=== PATIENT | female | born 1945 | race Caucasian/White ===

== ENCOUNTER 2016-07-25 18:02 | Inpatient (IN) | payer OTHER, MEDICARE ==
[~2016-07-25] VITALS: Ht 177.8 cm; Wt 89.0 kg
[2016-07-25 18:14] VITALS: BP 158/100; PULSE 113; RESP 22; TEMP 98.2; O2SAT 97
[2016-07-25] MEDS ORDERED: [UNRECOGNIZED DRUG - REMARK] PO (18:19)
[2016-07-25] MEDS ORDERED: SODIUM CHLOR 0.9% 1000 ML INJ 1,000 ML IV SCH (18:23)
[2016-07-25] MEDS ORDERED: SODIUM CHLORIDE 0.9% FLUSH 10 ML FLUSH IVF PRN ×2 (18:30→20:30)
[2016-07-25] MEDS ORDERED: ONDANSETRON HCL 4 MG/2 ML VIAL IVP ONE (18:30)
[2016-07-25] MEDS ORDERED: MORPHINE SULFATE 4 MG/ML INJ IV PUSH ONE (18:30)
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
[2016-07-25 18:50] LABS: AUTOMATED NEUTROPHIL # 8.6 TH/MM3 (1.8-7.7); BASOPHIL # 0.1 TH/MM3 (0-0.2); BASOPHIL % 0.9 % (0.0-2.0); EOSINOPHIL # 0.1 TH/MM3 (0-0.4); EOSINOPHIL % 0.5 % (0.0-4.0); HEMATOCRIT 43.2 % (35.0-46.0); HEMO FLAGS DIFF FINAL; LYMPH % 20.4 % (9.0-44.0); LYMPHOCYTE # 2.4 TH/MM3 (1.0-4.8); MEAN CELL VOLUME 92.3 FL (80.0-100.0); MEAN CORPUSCULAR HEMOGLOBIN 30.5 PG (27.0-34.0); MONO % 4.7 % (0.0-8.0); NEUT % 73.5 % (16.0-70.0); PLATELET COUNT 223 TH/MM3 (150-450); RED BLOOD COUNT 4.68 MIL/MM3 (4.00-5.30); RED CELL DISTRIBUTION WIDTH 12.6 % (11.6-17.2); WHITE BLOOD COUNT 11.7 TH/MM3 (4.0-11.0)
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
[2016-07-25 19:01] LABS: APTT (PATIENT) 22.4 SEC (24.3-30.1); INTERNATIONAL NORMALIZED RATIO 0.9 RATIO; PROTHROMBIN TIME - PATIENT 10.2 SEC (9.8-11.6)
[2016-07-25 19:13] LABS: ANION GAP 7 MEQ/L (5-15); BICARBONATE 24.8 MEQ/L (21.0-32.0); BLOOD UREA NITROGEN 14 MG/DL (7-18); CHLORIDE 104 MEQ/L (98-107); GLOMERULAR FILTRATION RATE 53 ML/MIN (>89); SODIUM (NA) 136 MEQ/L (136-145)
[2016-07-25 19:17] LABS: CREATINE KINASE 129 U/L (26-192)
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
[2016-07-25 19:30] LABS: CKMB 3.6 NG/ML (0.5-3.6)
[2016-07-25] MEDS ORDERED: IOHEXOL 350 MG/ML 10 ML VIAL (for RAD DIAG) IV ONE (20:00)
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
[2016-07-25] MEDS ORDERED: ONDANSETRON HCL 4 MG/2 ML VIAL IV PRN (20:30)
[2016-07-25] MEDS ORDERED: NALOXONE HCL 0.4 MG/ML AMP IV PRN (20:30)
[2016-07-25] MEDS ORDERED: oxyCODONE/ACETAMINOPHEN 5 MG/325 MG TAB PO PRN (20:30)
[2016-07-25] MEDS ORDERED: MORPHINE SULFATE 4 MG/ML INJ IV PRN (20:30)
[2016-07-25] MEDS ORDERED: Post-op Orders (for Pharmacy) MISC XX ONE (20:30)
[2016-07-25] MEDS ORDERED: SODIUM CHLORIDE 0.9% FLUSH 10 ML FLUSH IV FLUSH PRN (20:30)
[2016-07-25 20:50] VITALS: O2SAT 98
[2016-07-25] MEDS: SODIUM CHLORIDE 0.9% FLUSH 10 ML FLUSH IV FLUSH SCH (21:00)
[2016-07-25] MEDS ORDERED: DOCUSATE SODIUM 100 MG CAP PO SCH (21:00)
[2016-07-25] MEDS ORDERED: SODIUM CHLORIDE 0.9% FLUSH 10 ML FLUSH IV FLUSH SCH (21:00)
[2016-07-25] MEDS: KETOROLAC TROMETHAMINE 30 MG/ML (IVP) VIAL IV PUSH SCH (22:05)
[2016-07-25] MEDS: SODIUM CHLOR 0.9% 1000 ML INJ 1,000 ML IV SCH (22:05)
[2016-07-25] MEDS: LIDOCAINE HCL 5% PATCH T-DERMAL SCH (22:06)
[2016-07-25] MEDS: PANTOPRAZOLE SOD 40 MG DELAYED RELEASE TAB PO SCH (22:06)
[2016-07-25 22:27] VITALS: RESP 16; O2SAT 95
[2016-07-25] MEDS: ENOXAPARIN SODIUM 40 MG/0.4 ML SYRINGE SQ SCH (22:46)
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
[2016-07-26] VITALS (9 sets, daily range): BP systolic 119–157; BP diastolic 55–80; PULSE 58–78; RESP 18–20; TEMP 96.8–98; O2SAT 90–100
[2016-07-26] MEDS: KETOROLAC TROMETHAMINE 30 MG/ML (IVP) VIAL IV PUSH SCH ×4 (03:00→21:00)
[2016-07-26] MEDS: SODIUM CHLOR 0.9% 1000 ML INJ 1,000 ML IV SCH ×2 (06:13→17:08)
[2016-07-26 08:42] LABS: BASOPHIL % 0.4 % (0.0-2.0); EOSINOPHIL % 0.4 % (0.0-4.0); HEMATOCRIT 37.3 % (35.0-46.0); HEMO FLAGS DIFF FINAL; LYMPH % 32.7 % (9.0-44.0); LYMPHOCYTE # 2.2 TH/MM3 (1.0-4.8); MEAN CELL VOLUME 91.8 FL (80.0-100.0); MEAN CORPUSCULAR HEMOGLOBIN 30.8 PG (27.0-34.0); MEAN CORPUSCULAR HGB CONC 33.5 % (32.0-36.0); MONO % 7.5 % (0.0-8.0); PLATELET COUNT 204 TH/MM3 (150-450); RED BLOOD COUNT 4.06 MIL/MM3 (4.00-5.30); RED CELL DISTRIBUTION WIDTH 12.7 % (11.6-17.2); WHITE BLOOD COUNT 6.8 TH/MM3 (4.0-11.0)
[2016-07-26] MEDS ORDERED: REMOVE OLD LIDOCAINE PATCH T-DERMAL SCH (09:00)
[2016-07-26 09:24] LABS: BICARBONATE 27.9 MEQ/L (21.0-32.0)
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
[2016-07-26] MEDS: METHOCARBAMOL 500 MG TAB PO SCH ×3 (10:27→22:00)
[2016-07-26] MEDS: ACETAMINOPHEN 1000 MG/100 ML VIAL IV SCH ×3 (10:27→20:00)
[2016-07-26] MEDS: POLYETHYLENE GLYCOL 17 GM PKG PO SCH (10:29)
[2016-07-26] MEDS: SODIUM CHLORIDE 0.9% FLUSH 10 ML FLUSH IV FLUSH SCH ×2 (10:30→21:00)
[2016-07-26] MEDS: DOCUSATE SODIUM 50 MG/SENNA 8.6 MG TAB PO SCH ×2 (10:30→21:00)
--- NOTE | 2016-07-26 12:08 | EKG ---
Date Performed: 07/25/2016 Time Performed: 18:18:33 PTAGE: 71 years EKG: SINUS TACHYCARDIA POSSIBLE LEFT ATRIAL ENLARGEMENT NONSPECIFIC ST & T-WAVE ABNORMALITY ABNO RMAL RHYTHM ECG NO PREVIOUS TRACING DOCTOR: Hi Stephens Interpretating Date/Time 07/26/2016 12:07:50
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
[2016-07-26] MEDS ORDERED: WALKER WHEELS/F1 MIS (18:31)
[2016-07-26] MEDS: LIDOCAINE HCL 5% PATCH T-DERMAL SCH (21:00)
[2016-07-26] MEDS ORDERED: MELATONIN 5 MG TAB PO SCH (21:00)
[2016-07-26] MEDS: ENOXAPARIN SODIUM 40 MG/0.4 ML SYRINGE SQ SCH (22:00)
[2016-07-26] MEDS: PANTOPRAZOLE SOD 40 MG DELAYED RELEASE TAB PO SCH (22:00)
[2016-07-27 01:00] VITALS: BP 159/72; PULSE 92; RESP 16; TEMP 97.7; O2SAT 97
[2016-07-27] MEDS: ACETAMINOPHEN 1000 MG/100 ML VIAL IV SCH (02:00)
[2016-07-27] MEDS: KETOROLAC TROMETHAMINE 30 MG/ML (IVP) VIAL IV PUSH SCH ×2 (02:46→10:32)
[2016-07-27] MEDS: SODIUM CHLOR 0.9% 1000 ML INJ 1,000 ML IV SCH (02:57)
[2016-07-27 04:00] VITALS: BP 140/66; PULSE 79; RESP 18; TEMP 98.4; O2SAT 98
[2016-07-27] MEDS: METHOCARBAMOL 500 MG TAB PO SCH ×2 (05:07→13:07)
[2016-07-27 08:00] VITALS: BP_SYST 171; BP_SYST 184; BP_DIAS 78; BP_DIAS 81; PULSE 75; RESP 20; TEMP 96.7; O2SAT 96
[2016-07-27] MEDS: DOCUSATE SODIUM 50 MG/SENNA 8.6 MG TAB PO SCH (09:00)
[2016-07-27] MEDS: SODIUM CHLORIDE 0.9% FLUSH 10 ML FLUSH IV FLUSH SCH (09:00)
[2016-07-27] MEDS: POLYETHYLENE GLYCOL 17 GM PKG PO SCH (09:00)
[2016-07-27 09:54] VITALS: O2SAT 96
[2016-07-27] MEDS ORDERED: CYCL1TAB29 PO (10:50)
[2016-07-27] MEDS ORDERED: NORC5TAB PO (10:50)
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
== END 2016-07-27 14:25 | disposition home or self-care (01) | DRG 183 ==
LOC: NEPC 18:02 → NEDA 20:29 → N05B 07-26 00:13
PROVIDERS: ADMIT Surgery; ATTEND Surgery
DX: S22.42XA Multiple fractures of ribs, left side, initial encounter for closed fracture (principal); S27.1XXA Traumatic hemothorax, initial encounter; J90 Pleural effusion, not elsewhere classified; J98.11 Atelectasis; E78.00 Pure hypercholesterolemia, unspecified; I10 Essential (primary) hypertension; K57.30 Diverticulosis of large intestine without perforation or abscess without bleeding; G47.00 Insomnia, unspecified; V43.52XA Car driver injured in collision with other type car in traffic accident, initial encounter; Y92.410 Unspecified street and highway as the place of occurrence of the external cause
CPT/HCPCS: 70450; 71010; 71260; 72125; 73552; 74177; 80048; 82550; 82552; 84484; 85025; 85610; 85730; 86850; 86900; 86901; 93005; 94150; 94640; 96374; 96375; J0131; J1650; J1885; J2270; J2405; J7030; Q9967